=== PATIENT | female | born 1965 | race African-American/Black ===

== ENCOUNTER 2016-11-12 12:21 | Inpatient (IN) | payer OTHER ==
[~2016-11-12] VITALS: Ht 154.9 cm; Wt 91.3 kg
[2016-11-13] MEDS ORDERED: METO100T PO (12:05)
[2016-11-17] MEDS ORDERED: ONDANSETRON HCL 4 MG/2 ML VIAL IV PUSH SCH (05:30)
[2016-11-17] MEDS ORDERED: APREPITANT 40 MG CAP PO SCH (05:30)
[2016-11-17] MEDS ORDERED: INSULIN HUMAN REGULAR 1,000 UNITS/10 ML VIAL SQ PRN (05:30)
[2016-11-17] MEDS ORDERED: SCOPOLAMINE 1.5 MG PATCH T-DERMAL SCH (05:30)
[2016-11-17] MEDS ORDERED: metroNIDAZOLE 500 MG INJ 100 ML IV SCH (05:30)
[2016-11-17] MEDS ORDERED: METOPROLOL TARTRATE 25 MG TAB PO PRN (05:30)
[2016-11-17] MEDS ORDERED: ACETAMINOPHEN 1000 MG/100 ML VIAL IV SCH (05:30)
[2016-11-17] MEDS ORDERED: ceFAZolin 2 GM PREMIX 50 ML IV SCH (05:30)
[2016-11-17 05:52] VITALS: BP 141/89; PULSE 74; RESP 16; TEMP 97.7; O2SAT 98
[2016-11-17] MEDS ORDERED: SODIUM CHLORID 0.9% 500 ML IV SCH (06:00)
[2016-11-17] MEDS: LACTATED RINGER'S 1000 ML IV SCH (06:05)
[2016-11-17] MEDS ORDERED: MIDAZOLAM HCL 2 MG/2 ML VIAL ONE (08:22)
[2016-11-17] MEDS ORDERED: FAMOTIDINE 20 MG/2 ML VIAL ONE (08:22)
[2016-11-17] MEDS ORDERED: BUPIVACAINE/EPINEPHRINE 0.25% PF 30 ML VIAL INFIL ONE (09:05)
[2016-11-17] MEDS ORDERED: Post-op Orders (for Pharmacy) MISC XX ONE (10:00)
[2016-11-17] MEDS ORDERED: ACETAMINOPHEN 325MG/HYDROcodone 7.5MG/15ML UDC PO PRN ×2 (10:00)
[2016-11-17] MEDS ORDERED: diphenhydrAMINE HCL 50 MG/ML VIAL IV PRN (10:00)
[2016-11-17] MEDS ORDERED: diphenhydrAMINE HCL ELIXIR 12.5 MG/5 ML CUP PO PRN (10:00)
[2016-11-17] MEDS ORDERED: ENALAPRILAT 1.25 MG/ML VIAL IV PUSH PRN (10:00)
[2016-11-17] MEDS ORDERED: ONDANSETRON HCL 4 MG/2 ML VIAL IV PRN ×2 (10:00)
[2016-11-17] MEDS ORDERED: ACETAMINOPHEN 1000 MG/100 ML VIAL IV PRN (10:00)
[2016-11-17] MEDS ORDERED: SODIUM CHLORIDE 0.9% FLUSH 5 ML FLUSH IVF PRN (10:00)
[2016-11-17] MEDS ORDERED: NALOXONE HCL 0.4 MG/ML AMP IV PRN (10:00)
[2016-11-17] MEDS ORDERED: ePHEDrine/NS 50 MG/5 ML SYR IV ONE (10:05)
[2016-11-17] MEDS ORDERED: LACTATED RINGER'S 1000 ML INJ 1,000 ML IV ONE (10:05)
[2016-11-17] MEDS ORDERED: NEOSTIGMINE 3 MG/3 ML SYR IV ONE ×2 (10:05→12:00)
[2016-11-17] MEDS ORDERED: PROPOFOL 200 MG/20 ML AMP IV ONE (10:05)
[2016-11-17] MEDS ORDERED: ONDANSETRON HCL 4 MG/2 ML VIAL IV PUSH ONE (10:05)
[2016-11-17] MEDS ORDERED: DO NOT ADM ANY ANTICOAGULANT DRUGS XX PRN (10:14)
[2016-11-17] MEDS: 1/2 NS + KCL 20 MEQ INJ 1,000 ML IV SCH ×3 (10:50→22:10)
[2016-11-17] MEDS: METOCLOPRAMIDE HCL 10 MG/2 ML VIAL IVS SCH ×3 (10:50→22:09)
[2016-11-17] MEDS ORDERED: MORPHINE SULFATE 30 MG/30 ML PCA IV SCH (11:00)
[2016-11-17] MEDS: RESP: ALBUTEROL 2.5 MG/3 ML NEB (SCH) INH (11:52)
[2016-11-17] MEDS ORDERED: *LABETALOL HCL 100 MG/20 ML VIAL PERIprocedural Use ONLY ONE (11:54)
[2016-11-17] MEDS: PCA - TOTAL MG MORPHINE DELIVERED PER SHIFT SCH ×2 (14:00→22:00)
[2016-11-17] MEDS: ENOXAPARIN SODIUM 40 MG/0.4 ML SYRINGE SQ SCH (14:00)
[2016-11-17 14:15] VITALS: BP 142/78; PULSE 100; RESP 18; TEMP 95.8; O2SAT 94
[2016-11-17] MEDS ORDERED: fentaNYL CITRATE 250 MCG/5 ML AMP ONE (14:31)
[2016-11-17] MEDS: metroNIDAZOLE 500 MG INJ 100 ML IV SCH (15:36)
[2016-11-17 20:00] VITALS: BP 137/72; PULSE 109; RESP 18; TEMP 96.6; O2SAT 94
[2016-11-17] MEDS: SODIUM CHLORIDE 0.9% FLUSH 5 ML FLUSH IVF SCH (21:00)
[2016-11-18] VITALS: BP 156/86; PULSE 115; RESP 18; TEMP 98.1; O2SAT 94
[2016-11-18] MEDS: metroNIDAZOLE 500 MG INJ 100 ML IV SCH ×2 (01:12→08:28)
[2016-11-18] MEDS: RESP: ALBUTEROL 2.5 MG/3 ML NEB (SCH) INH ×4 (01:23→11:18)
[2016-11-18] MEDS: METOCLOPRAMIDE HCL 10 MG/2 ML VIAL IVS SCH (04:52)
[2016-11-18] MEDS: 1/2 NS + KCL 20 MEQ INJ 1,000 ML IV SCH ×3 (04:53→11:23)
[2016-11-18] MEDS: LACTATED RINGER'S 1000 ML IV SCH (04:53)
[2016-11-18 04:59] VITALS: O2SAT 92
[2016-11-18] MEDS: PCA - TOTAL MG MORPHINE DELIVERED PER SHIFT SCH ×2 (05:41→13:39)
[2016-11-18 05:43] LABS: AUTOMATED NEUTROPHIL # 8.2 TH/MM3 (1.8-7.7); BASOPHIL % 0.2 % (0.0-2.0); HEMATOCRIT 44.7 % (35.0-46.0); HEMO FLAGS DIFF FINAL; LYMPH % 9.3 % (9.0-44.0); LYMPHOCYTE # 0.9 TH/MM3 (1.0-4.8); MEAN CELL VOLUME 89.9 FL (80.0-100.0); MEAN CORPUSCULAR HEMOGLOBIN 29.8 PG (27.0-34.0); MEAN CORPUSCULAR HGB CONC 33.2 % (32.0-36.0); NEUT % 84.5 % (16.0-70.0); PLATELET COUNT 188 TH/MM3 (150-450); RED BLOOD COUNT 4.97 MIL/MM3 (4.00-5.30); RED CELL DISTRIBUTION WIDTH 14.1 % (11.6-17.2); WHITE BLOOD COUNT 9.8 TH/MM3 (4.0-11.0)
[2016-11-18 06:11] LABS: BICARBONATE 26.1 MEQ/L (21.0-32.0)
[2016-11-18 06:14] LABS: POTASSIUM 4.2 MEQ/L (3.5-5.1)
[2016-11-18 07:55] VITALS: O2SAT 97
[2016-11-18] MEDS: SODIUM CHLORIDE 0.9% FLUSH 5 ML FLUSH IVF SCH (08:29)
[2016-11-18 08:36] VITALS: BP 173/88; PULSE 113; RESP 17; TEMP 98.8; O2SAT 95
[2016-11-18] MEDS ORDERED: PANTOPRAZOLE SOD 40 MG DELAYED RELEASE TAB PO SCH (09:00)
[2016-11-18] MEDS ORDERED: PANTOPRAZOLE SODIUM 40 MG VIAL IVP SCH (09:00)
[2016-11-18] MEDS ORDERED: METOCLOPRAMIDE HCL 10 MG/2 ML VIAL IVS PRN (10:00)
[2016-11-18] MEDS ORDERED: METOPROLOL TARTRATE 100 MG TAB PO SCH (11:00)
[2016-11-18] MEDS ORDERED: DILA2TAB2 PO (11:31)
[2016-11-18 11:46] VITALS: BP 174/94; PULSE 115; RESP 20; TEMP 98.6; O2SAT 95
[2016-11-18] MEDS: ENOXAPARIN SODIUM 40 MG/0.4 ML SYRINGE SQ SCH (13:38)
[2016-11-18 13:39] VITALS: RESP 19
--- NOTE | 2016-11-18 16:29 | HHI.PR ---
Subjective Subjective Notes pt comfortable no cp no sob Objective Vitals/I&O Vital Signs Date Time Temp Pulse Resp B/P Pulse Ox O2 Delivery O2 Flow Rate FiO2 11/18/16 13:39 19 11/18/16 11:46 98.6 115 174/94 95 11/18/16 07:55 21 11/18/16 04:59 Nasal Cannula 11/17/16 13:00 2 Labs Laboratory Tests Test 11/18/16 04:38 White Blood Count 9.8 Red Blood Count 4.97 Hemoglobin 14.8 Hematocrit 44.7 Mean Corpuscular Volume 89.9 Mean Corpuscular Hemoglobin 29.8 Mean Corpuscular Hemoglobin 33.2 Concent Red Cell Distribution Width 14.1 Platelet Count 188 Mean Platelet Volume 10.5 Neutrophils (%) (Auto) 84.5 Lymphocytes (%) (Auto) 9.3 Monocytes (%) (Auto) 6.0 Eosinophils (%) (Auto) 0.0 Basophils (%) (Auto) 0.2 Neutrophils # (Auto) 8.2 Lymphocytes # (Auto) 0.9 Monocytes # (Auto) 0.6 Eosinophils # (Auto) 0.0 Basophils # (Auto) 0.0 CBC Comment DIFF FINAL Differential Comment Sodium Level 140 Potassium Level 4.2 Chloride Level 105 Carbon Dioxide Level 26.1 Anion Gap 9 Blood Urea Nitrogen 10 Creatinine 0.97 Estimat Glomerular Filtration 73 Rate Random Glucose 115 Calcium Level 8.9 Magnesium Level 2.0 Abdomen: Post-op tenderness Extremities: Perfused Wound Wound : Wound Location: Abdomen Appearance: Clean & Dry A/P Assessment and Plan s/p lap sleeve POD# 1 doing well follow protocol Regino Doherty MD Nov 18, 2016 16:29
--- NOTE | 2016-11-25 11:09 | MP ---
cc: JOSE DOHERTY DATE OF SURGERY 11/17/2016 DATE OF 1965 PREOPERATIVE DIAGNOSIS Severe obesity with a BMI of 38, complicated by essential hypertension POSTOPERATIVE DIAGNOSIS Severe obesity with a BMI of 38, complicated by essential hypertension PROCEDURE Laparoscopic vertical sleeve gastrectomy over a 36-[place] ViSiGi bougie. SURGEON Jose Doherty MD ANESTHESIA General endotracheal anesthesia ESTIMATED BLOOD LOSS Scant FINDINGS Fatty liver SPECIMENS None COMPLICATIONS None PROCEDURE IN DETAIL The patient was brought to the operating room and placed on the operating table in supine position, bilateral sequential inflation device placed on lower extremities. General anesthesia was instituted. Antibiotics was initiated. The abdomen was prepped and draped sterilely. A point 15 cm distal to the xiphoid in the midline was anesthetized with 0.25% Marcaine with epinephrine. A skin incision was made, 5-mm OptiView port placed under direct vision and pneumoperitoneum created. Under direct vision, three 5-mm left upper quadrant, a 15-mm right upper quadrant, 5-mm right upper quadrant ports placed. Prior to placement of all ports the skin and peritoneum were anesthetized with 0.25% Marcaine with epinephrine. The patient was placed in reverse Trendelenburg position left side up, the Chanelle-Flex retractor was placed. The left lobe of the liver was retracted. The vasculature along the greater curvature of the stomach was using harmonic scalpel starting a distance 5-cm proximal to the pylorus and carried towards the angle of His. The angle of His was taken down bluntly. Posterior ligamentous attachments were sharply . A 36-[place] ViSiGi bougie was placed at the start of the case, was placed on suction. Division of the stomach started 5 cm proximal to the pylorus and carried towards the angle of His to completely excise approximately 80% of the stomach. This was performed using an [place] Flex stapler at the pylorus. The first firing was with a black load, followed by a green load and four gold loads. All staple loads were reinforced with SeamGuard. A distance of 2 cm was left from the angle incisura and the staple line and a distance of 1 cm left from the GE junction and the staple line. The pylorus was then occluded, methylene blue tinged saline was instilled. There was no evidence of extravasation. The gastrocolic ligament was then sutured to the posterior leaflet of the SeamGuard using a 2-0 Vicryl suture in a running manner. Bleeding points were controlled with Evicel. The excised stomach was removed from the peritoneal cavity through the 15-mm port site in an Endopouch. The fascia at the 15-mm port site was approximated with 0 Vicryl suture. The CO2 was then released, all ports were removed, all skin incisions closed with 4-0 Monocryl. The abdominal wall was cleaned. A sterile dressing was placed. The patient was awakened and taken to the recovery room. MD RICHMOND Sales/ROGELIO /4:07 PM /11:04 AM
== END 2016-11-18 14:09 | disposition home or self-care (01) | DRG 621 ==
LOC: HSDI 11-17 05:03 → N07B 11-17 14:46
PROVIDERS: ADMIT Surgery; ATTEND Surgery
PROC: 0DB64Z3 Excision of Stomach, Percutaneous Endoscopic Approach, Vertical (ICD-10-PCS; principal; 2016-11-17 08:26)
DX: E66.01 Morbid (severe) obesity due to excess calories (principal); K76.0 Fatty (change of) liver, not elsewhere classified; I10 Essential (primary) hypertension; Z68.38 Body mass index [BMI] 38.0-38.9, adult; R73.9 Hyperglycemia, unspecified; E78.5 Hyperlipidemia, unspecified
CPT/HCPCS: 80048; 83735; 85025; 94150; 94664; J0131; J0690; J1650; J2250; J2270; J2405; J2710; J2765; J3010; J7120; J7613; J8501